=== PATIENT | male | born 1975 | race Caucasian/White ===

== ENCOUNTER → 2019-10-23 11:00 | Outpatient (BNVA) | payer BC, SELFPAY | PROVIDERS: Family Provider Family Medicine; PCP Family Medicine; Visit Provider Internal Medicine | DX: Z11.59 Encounter for screening for other viral diseases (principal) | CPT/HCPCS: 87635 ==

== ENCOUNTER → 2019-12-02 10:02 | Outpatient (BNVA) | payer BC, SELFPAY | PROVIDERS: Family Provider Family Medicine; PCP Family Medicine; Visit Provider Internal Medicine | DX: Z20.828 Contact with and (suspected) exposure to other viral communicable diseases (principal) | CPT/HCPCS: 87635 ==

== ENCOUNTER 2019-12-08 08:54 | Day surgery (SDC) | payer BC, SELFPAY ==
[2019-12-02 11:58] VITALS: BMI 25.7
[2019-12-08 09:09] VITALS: BP 144/85; PULSE 53; RESP 18; TEMP 36.3; O2SAT 98
[2019-12-08] MEDS: sodium chloride 0.9% 1,000 ML 30 ML IV (09:24)
--- NOTE | 2019-12-08 09:31 | ANES.PREANE2 ---
Pre-Anesthetic Assessment Pre-Anesthetic Assessment: Height/Weight: Height 1.85 m Weight 88.451 kg Temp Pulse Resp BP Pulse Ox 97.3 F L 53 L 18 144/85 98 12/08/19 09:09 12/08/19 09:09 12/08/19 09:09 12/08/19 09:09 12/08/19 09:09 Preop Diagnosis: dysph Proposed Procedure: Operation Date: 12/08/19 10:00 Proposed Procedures p EGD 79589 R13.10(Not Applicable) - Ger Campos MD Familial anesthetic complications: None Was Beta Arik taken within 24 hours: N/A Last intake: Intake Last Liquid Date 12/07/19 Last Liquid Time 22:00 Last Solid Date 12/07/19 Last Solid Time 18:00 Social: Social History: No alcohol and No tobacco Exam: Pre-Anes Outpt Exam: alert, oriented x 3, clear to auscultation bilaterally and regular rate & rhythm Airway: Cervical ROM: WNL MP: 4 Dentition: Full GI: GI: GERD Comments: dysphagia Anesthetic Plan: ASA status: 1 Anesthesia: MAC Risk of > 500 ml blood loss (7ml/kg in children): No Meds/Allergies Current Medications: Current Medications Generic Name Dose Route Start Last Admin Trade Name Freq PRN Reason Stop Dose Admin Sodium Chloride 1,000 mls @ 30 ml s/hr 12/08/19 09:00 12/08/19 09:24 Sodium Chloride 0.9% IV 30 mls/hr .Q24H CHAGO Administration PFSH Anesthesia PFSH: Social History (Updated 10/23/19 @ 09:27 by KOFI Alford) Smoking and tobacco status: never smoked Alcohol intake: current Alcohol intake frequency: few times a week History of recent travel: No Data Anesthesia Cardiac Studies: No Data to Display
--- NOTE | 2019-12-08 10:15 | W.PM.OPSUD ---
Surgery/Procedure H&P Update DATE OF PROCEDURE: December 08, 2019 DATE H&P PERFORMED: 10/23/19 PREOP DIAGNOSIS: dysph PLANNED PROCEDURE: Operation Date: 12/08/19 10:00 Proposed Procedures p EGD 60289 R13.10(Not Applicable) - Ger Campos MD
[2019-12-08 11:41] VITALS: BP 132/76; PULSE 54; RESP 18; TEMP 37; O2SAT 96
[2019-12-08 12:03] VITALS: BP 151/64; PULSE 52; RESP 18; O2SAT 98
--- NOTE | 2019-12-08 12:10 | ANE.PACU2 ---
Inpatient post-anesthesia follow up: Airway intact: Yes Vital signs: Temperature 98.6 F Pulse Rate 52 Respiratory Rate 18 Blood Pressure 151/64 Pulse Oximetry 98 Oxygen Delivery Me thod Room Air Oxygen Flow Rate Fraction of Inspir ed Oxygen Hydration adequate: Yes Nausea and vomiting: No Pain level: 1 Mental status: Baseline
[2019-12-09 08:15] LABS: H. Pylori / CLO Test Negative
--- NOTE | 2019-12-23 12:42 | W.PM.OPSFHP ---
Same Day Surgery H&P Indication for Procedure/HPI DATE OF PROCEDURE: December 23, 2019 CHIEF COMPLAINT/INDICATIONFOR SURGICAL PROCEDURE: Abdominal pain PREOP DIAGNOSIS: dysph PLANNED PROCEDRUE: Operation Date: 12/08/19 10:00 Proposed Procedures p EGD 78278 R13.10(Not Applicable) - Ger Campos MD Medications/Allergies* Home Medications Medication Instructions Recorded Confirmed Type Excedrin Extra Strength 1 tab PO Q6H PRN 12/08/19 12/08/19 History Allergies/Adverse Reactions Allergy/AdvReac Type Severity Reaction Status Date / Time No Known Allergies Allergy Verified 10/23/19 09:23 Pertinent History/Comorbid Conditions* Social History Smoking and tobacco status: never smoked Alcohol intake: current Alcohol intake frequency: few times a week History of recent travel: No Pertinent Exam Findings alert, oriented x 3, clear to auscultation bilaterally, regular rate & rhythm, operative site marked and procedure specific exam findings Recommendations Surgery/Procedure today Coding Level of Care Code Acute Dental Equipment Technician for Shruthi Montero
== END 2019-12-08 12:10 | disposition home or self-care (01) ==
PROVIDERS: PCP Nurse Practitioner Family; Visit Provider Internal Medicine
PROC: 0DJ08ZZ Inspection of Upper Intestinal Tract, Via Natural or Artificial Opening Endoscopic (ICD-10-PCS; CPT 43235; principal; 2019-12-08 10:00)
DX: R13.10 Dysphagia, unspecified (principal); K29.71 Gastritis, unspecified, with bleeding; F17.290 Nicotine dependence, other tobacco product, uncomplicated
CPT/HCPCS: 12345; 43239; 87077; J2704; J7030

== ENCOUNTER → 2021-03-01 08:40 | Outpatient (BNVA) | payer OTHER, SELFPAY | PROVIDERS: PCP Nurse Practitioner Family; Visit Provider Nurse Practitioner Family | DX: Z13.6 Encounter for screening for cardiovascular disorders (principal) | CPT/HCPCS: 80053; 80061; 84443; 85025 ==

== ENCOUNTER → 2021-08-22 08:29 | Outpatient (BNVA) | payer OTHER, SELFPAY | PROVIDERS: PCP Nurse Practitioner Family; Visit Provider Nurse Practitioner Family | DX: E78.00 Pure hypercholesterolemia, unspecified (principal) | CPT/HCPCS: 80053; 80061 ==

== ENCOUNTER → 2022-01-31 09:55 | Outpatient (BNVA) | payer OTHER, SELFPAY | PROVIDERS: PCP Nurse Practitioner Family; Visit Provider Nurse Practitioner Family | DX: E78.00 Pure hypercholesterolemia, unspecified (principal) | CPT/HCPCS: 80053; 80061 ==

== ENCOUNTER → 2022-07-07 09:22 | Outpatient (BNVA) | payer OTHER, SELFPAY | PROVIDERS: PCP Nurse Practitioner Family; Visit Provider Nurse Practitioner Family | DX: E78.00 Pure hypercholesterolemia, unspecified (principal) | CPT/HCPCS: 80053; 80061 ==

== ENCOUNTER → 2023-02-23 10:17 | Outpatient (BNVA) | payer OTHER, SELFPAY | PROVIDERS: PCP Nurse Practitioner Family; Visit Provider Nurse Practitioner Family | DX: E78.00 Pure hypercholesterolemia, unspecified (principal); L98.9 Disorder of the skin and subcutaneous tissue, unspecified | CPT/HCPCS: 80053; 80061; 84443; 88304 ==

== ENCOUNTER → 2023-12-24 11:30 | Outpatient (BNVA) | payer OTHER, SELFPAY | PROVIDERS: PCP Nurse Practitioner Family; Visit Provider Nurse Practitioner Family | DX: E78.00 Pure hypercholesterolemia, unspecified (principal) | CPT/HCPCS: 80053; 80061 ==

== ENCOUNTER 2024-02-19 07:57 | Day surgery (SDC) | payer OTHER, SELFPAY ==
[2024-02-19 08:20] VITALS: BP 134/78; PULSE 64; RESP 18; TEMP 36.7; O2SAT 98; BMI 25.0
[2024-02-19] MEDS: sodium chloride 0.9% 500 ML 15 ML IV (08:27)
--- NOTE | 2024-02-19 09:21 | ANES.PREANE2 ---
Pre-Anesthetic Assessment Height/Weight: Height 1.85 m Weight 86.183 kg Temp Pulse Resp BP Pulse Ox O2 Del Method 98.0 F 64 18 134/78 98 Room Air 02/19/24 08:20 02/19/24 08:20 02/19/24 08:20 02/19/24 08:20 02/19/24 08:20 02/19/24 08:20 Operation Date: 02/19/24 09:00 Proposed Procedures p Colonoscopy 72793, G0121, Z12.11(Not Applicable) - Matthieu Moss MD Familial anesthetic complications: none Was Beta Arik taken within 24 hours: N/A Was Clonidine taken within 24 hours: N/A Last intake: Intake Last Liquid Date 02/18/24 Last Liquid Time 23:00 Last Solid Date 02/18/24 Last Solid Time 08:30 Social No alcohol and No tobacco Exam alert, oriented x 3, clear to auscultation bilaterally and regular rate & rhythm Airway Submandibular: within normal limits Cervical ROM: within normal limits Mallampati: Class II Dentition: full GI Gastroesophageal Reflux Disease Metabolic Hyperlipidemia Anesthetic Plan ASA status: 2 Anesthesia: MAC Medications/Allergies Home Medications Medication Instructions Recorded Confirmed Last Taken Type atorvastatin 40 mg tablet 40 mg PO DAILY 02/19/24 02/19/24 02/19/24 History Allergies Allergy/AdvReac Type Severity Reaction Status Date / Time No Known Allergies Allergy Verified 02/08/24 08:15 Current Medications Generic Name Dose Route Start Last Admin Trade Name Freq PRN Reason Stop Dose Admin Sodium Chloride 500 mls @ 15 mls/hr 02/19/24 08:05 02/19/24 08:27 Sodium Chloride 0.9% IV 02/20/24 08:04 15 mls/hr .Q24H PRN Administration COLONOSCOPY FLUIDS PFSH Anesthesia Social History Smoking and tobacco/nicotine status: current every day tobacco/nicotine user Alcohol intake: current Alcohol intake frequency: few times a week Data Anesthesia Cardiac Studies: No Data to Display
--- NOTE | 2024-02-19 09:38 | W.PM.OPSUD ---
Surgery/Procedure H&P Update DATE OF PROCEDURE: February 19, 2024 DATE H&P PERFORMED: 01/28/24 H&P UPDATE INFORMATION: I have reviewed H&P completed within last 30 days, I have examined patient prior to procedure and No changes to prior documentation PLANNED PROCEDURE: Operation Date: 02/19/24 09:00 Proposed Procedures p Colonoscopy 22815, G0121, Z12.11(Not Applicable) - Matthieu Moss MD
[2024-02-19 10:08] VITALS: BP 131/67; PULSE 59; RESP 12; TEMP 36.1; O2SAT 97
[2024-02-19 10:24] VITALS: BP 132/77; PULSE 57; RESP 16; O2SAT 100
--- NOTE | 2024-02-19 13:52 | ANE.PACU2 ---
Inpatient post-anesthesia follow up: Airway intact: Yes Vital signs: Temperature 97 F Pulse Rate 57 Respiratory Rate 16 Blood Pressure 132/77 Pulse Oximetry 100 Oxygen Delivery Me thod Room Air Oxygen Flow Rate Fraction of Inspir ed Oxygen Hydration adequate: Yes Nausea and vomiting: No Pain level: 2 Mental status: Baseline
== END 2024-02-19 10:45 | disposition home or self-care (01) ==
PROVIDERS: PCP Nurse Practitioner Family; Visit Provider Student in an Organized Health Care Education/Training Program
PROC: 0DJD8ZZ Inspection of Lower Intestinal Tract, Via Natural or Artificial Opening Endoscopic (ICD-10-PCS; CPT 45378; principal; 2024-02-19 09:00)
DX: Z12.11 Encounter for screening for malignant neoplasm of colon (principal); D12.8 Benign neoplasm of rectum; K21.9 Gastro-esophageal reflux disease without esophagitis; E78.5 Hyperlipidemia, unspecified; F17.200 Nicotine dependence, unspecified, uncomplicated
CPT/HCPCS: 45380; 45385; 88305; J2704; J7040

== ENCOUNTER → 2024-06-16 10:10 | Outpatient (BNVA) | payer OTHER, SELFPAY | PROVIDERS: PCP Nurse Practitioner Family; Visit Provider Nurse Practitioner Family | DX: E78.00 Pure hypercholesterolemia, unspecified (principal) | CPT/HCPCS: 80053; 80061 ==